=== PATIENT | male | born 1950 | race African-American/Black ===

== ENCOUNTER 2025-05-16 19:33 | Emergency (ER) | payer OTHER ==
[~2025-05-16] VITALS: Ht 185.4 cm; Wt 72.0 kg
[2025-05-16 20:33] VITALS: TEMP 36.4; O2SAT 99
[2025-05-16] MEDS: ACETAMINOPHEN 500MG TABLET PO ONE (21:08)
[2025-05-16] MEDS ORDERED: TOPUD MT (22:01)
[2025-05-16 22:27] VITALS: BP 115/56; PULSE 66; RESP 18; O2SAT 99
== END 2025-05-16 22:28 | disposition home or self-care (01) ==
LOC: ER 19:55
DX: M25.512 Pain in left shoulder (principal); W10.9XXA Fall (on) (from) unspecified stairs and steps, initial encounter; Y93.89 Activity, other specified; Y92.89 Other specified places as the place of occurrence of the external cause; Y99.8 Other external cause status
CPT/HCPCS: 73030; 99283